=== PATIENT | female | born 1995 | race Caucasian/White ===

== ENCOUNTER 2017-01-20 22:54 | Emergency (ER) | payer OTHER ==
[~2017-01-20] VITALS: Ht 162.6 cm; Wt 57.6 kg
[2017-01-21] MEDS ORDERED: diphenhydrAMINE INJ 50MG/ML VIAL (J1200) IV STA (00:24)
[2017-01-21] MEDS ORDERED: FAMOTIDINE IV BAG 20 MG in APPROPRIATE DILUENT 1 EA IV ONE (00:30)
[2017-01-21] MEDS ORDERED: methylPREDNISolone INJ 125 MG/2 ML VIAL (J2930) IV ONE (00:30)
[2017-01-21 01:50] VITALS: BP 101/60
[2017-01-21] MEDS ORDERED: PRED20TA PO (02:00)
== END 2017-01-21 02:12 | disposition home or self-care (01) ==
LOC: M ED 22:54
DX: T78.40XA Allergy, unspecified, initial encounter (principal); Y92.9 Unspecified place or not applicable; Y93.89 Activity, other specified
CPT/HCPCS: 96374; 96375; 99283; J1200; J2930